=== PATIENT | female | born 1990 | race Caucasian/White ===

== ENCOUNTER → 2019-02-14 | Outpatient (REF) | payer OTHER | LOC: M LAB LCGH 11:45 | PROVIDERS: ATTEND Obstetrics & Gynecology | DX: Z12.4 Encounter for screening for malignant neoplasm of cervix (principal) ==

== ENCOUNTER → 2024-06-06 | Outpatient (CLI) | payer BC, MEDICAID ==
[~2024-06-06] MED LIST: D 50CAP2; ENOX60IN3; ISOVUE-370 76% 100ML VIAL As Ordered ONE; MULTTAB20 PO; PREN1CHW4 PO; birth control
== END ==
LOC: M RAD 08:39
PROVIDERS: ATTEND Surgery Vascular Surgery
DX: I73.9 Peripheral vascular disease, unspecified (principal)
CPT/HCPCS: 75635; Q9967

== ENCOUNTER → 2024-07-06 | Outpatient (CLI) | payer BC, MEDICAID ==
[~2024-07-06] MED LIST changes: +ELIQ5TAB; -ISOVUE-370 76% 100ML VIAL As Ordered ONE; +PROHANCE 279.3MG/ML 15ML VIAL ONE
== END ==
LOC: M PLAIMG 10:47
PROVIDERS: ATTEND Nurse Practitioner Women's Health
DX: R06.02 Shortness of breath (principal); Z86.711 Personal history of pulmonary embolism
CPT/HCPCS: 71275; A9576

== ENCOUNTER → 2024-08-17 | Outpatient (CLI) | payer BC, MEDICAID ==
[~2024-08-17] MED LIST changes: -PROHANCE 279.3MG/ML 15ML VIAL ONE
== END ==
LOC: M CARPUL 12:19
PROVIDERS: ATTEND Physician Assistant
DX: R07.9 Chest pain, unspecified (principal)

== ENCOUNTER → 2024-09-04 | Outpatient (CLI) | payer BC, MEDICAID | LOC: M CARPUL 10:24 | PROVIDERS: ATTEND Physician Assistant | DX: I36.1 Nonrheumatic tricuspid (valve) insufficiency (principal); Z86.711 Personal history of pulmonary embolism ==